=== PATIENT | female | born 1995 | race African-American/Black ===

== ENCOUNTER 2022-06-19 08:14 | Emergency (ER) | payer OTHER ==
[2022-06-19] MEDS ORDERED: Ondansetron ODT 4 MG TAB ONE (09:13)
[2022-06-19] MEDS ORDERED: Famotidine/PF 20 mg/2ml Vial ONE (09:34)
[2022-06-19] MEDS ORDERED: Pantoprazole 40 MG VIAL ONE (09:34)
[2022-06-19 10:06] LABS: Bilirubin Neg (Negative); Blood, Urine 150 (Negative); Clarity Clear (Clear); Glucose, Urine (Dipstick) Normal (Negative); Ketone, Urine Negative (Negative); Leukocyte 25 (Negative); Nitrite Negative (Negative); Protein, Urine (Dipstick) Negative (Neg-Trace); Urobilinogen Normal mg/dL (Less than 2)
[2022-06-19 10:09] LABS: Pregnancy Test - Urine (BHCG) Negative (Negative); Pregu Control Background? CLEAR/WHITE (CLR/WHITE); Pregu Control Bar Appear? YES (CONTROL BAR)
[2022-06-19 10:19] LABS: #Monocytes 0.2 10x3/uL (0.0-1.1); #Neutrophils 4.7 10x3/uL (1.5-8.4); %Basophils 0.6 % (0.0-2.0); %Eosinophils 0.2 % (0.0-6.0); %Lymphocytes 24.5 % (18.0-47.0); %Monocytes 3.3 % (0.0-10.0); %Neutrophils 71.1 % (40.0-75.0); Hemoglobin 12.6 g/dL (12.0-15.5); Mean Corpuscular HGB CONC 34.9 g/dL (32.0-36.0); Mean Corpuscular Hemoglobin 32.1 pg (27.0-33.0); Mean Corpuscular Volume 91.9 fl (81.6-98.3); Mean Platelet Volume 10.1 fl (7.4-10.4); Platelet Count 478 10x3/uL (150-450); RBC Distribution Width 13.1 % (11.5-14.5); Red Blood Cell (RBC) Count 3.93 10x6/uL (3.90-5.03); White Blood Cell (WBC) Count 6.6 10x3/uL (3.5-10.5)
[2022-06-19 10:29] LABS: BHCG - Serum Negative (NEGATIVE); Pregs Control Background? CLEAR/WHITE (CLR/WHITE); Pregs Control Bar Appear? YES (CONTROL BAR)
[2022-06-19 10:34] LABS: ALT (SGPT) 24 U/L (8-55); AST (SGOT) 26 U/L (5-34); Albumin 4.5 g/dL (3.5-5.0); Alkaline Phosphatase 98 U/L (40-110); Anion Gap 18 mmol/L (10-20); BUN (Urea Nitrogen) 12 mg/dL (7.0-18.7); Bilirubin, Total 0.3 mg/dL (0.2-1.2); Calc. Creatinine Clearance 0 mL/min (70-130); Calcium 9.4 mg/dL (7.8-10.44); Carbon Dioxide 20 mmol/L (22-29); Chloride 108 mmol/L (98-107); Estimated GFR 113; Globulin 3.4 g/dL (2.4-3.5); Glucose 161 mg/dL (70-105); Lipase 13 U/L (8-78); Potassium 3.5 mmol/L (3.5-5.1); Protein, Total 7.9 g/dL (6.0-8.3); Sodium 142 mmol/L (136-145)
[2022-06-19 10:49] LABS: Bacteria/HPF 2+ HPF (None Seen); Mucous/LPF 1+ LPF (<2+); RBC/HPF 0-3 HPF (0-3); Squamous Epithelial 0-3 HPF (0-3)
== END 2022-06-19 11:05 | disposition home or self-care (01) ==
LOC: CSHERS 08:14
DX: K29.70 Gastritis, unspecified, without bleeding (principal); F17.290 Nicotine dependence, other tobacco product, uncomplicated
CPT/HCPCS: 36415; 80053; 81003; 81015; 81025; 83690; 84703; 85025; 96374; 96375; C9113; Q0162; S0028

== ENCOUNTER 2023-02-14 20:27 | Emergency (ER) | payer OTHER ==
[2023-02-14 21:20] LABS: #Monocytes 0.5 10x3/uL (0.0-1.1); #Neutrophils 12.5 10x3/uL (1.5-8.4); %Basophils 0.1 % (0.0-2.0); %Eosinophils 0.2 % (0.0-6.0); %Lymphocytes 11.6 % (18.0-47.0); %Monocytes 3.4 % (0.0-10.0); %Neutrophils 84.3 % (40.0-75.0); Hemoglobin 12.3 g/dL (12.0-15.5); Mean Corpuscular Hemoglobin 30.4 pg (27.0-33.0); Mean Corpuscular Volume 89.6 fl (81.6-98.3); Mean Platelet Volume 10.8 fl (7.4-10.4); Platelet Count 406 10x3/uL (150-450); RBC Distribution Width 12.5 % (11.5-14.5); Red Blood Cell (RBC) Count 4.04 10x6/uL (3.90-5.03); White Blood Cell (WBC) Count 14.9 10x3/uL (3.5-10.5)
[2023-02-14 21:31] LABS: ALT (SGPT) 15 U/L (8-55); AST (SGOT) 23 U/L (5-34); Albumin 4.1 g/dL (3.5-5.0); Alkaline Phosphatase 73 U/L (40-110); Anion Gap 18 mmol/L (10-20); BUN (Urea Nitrogen) 5 mg/dL (7.0-18.7); Bilirubin, Total 0.3 mg/dL (0.2-1.2); Calc. Creatinine Clearance 0 mL/min (70-130); Calcium 10.1 mg/dL (7.8-10.44); Carbon Dioxide 16 mmol/L (22-29); Chloride 106 mmol/L (98-107); Estimated GFR 127; Globulin 3.7 g/dL (2.4-3.5); Glucose 101 mg/dL (70-105); Potassium 3.5 mmol/L (3.5-5.1); Protein, Total 7.8 g/dL (6.0-8.3); Sodium 136 mmol/L (136-145)
[2023-02-14] MEDS ORDERED: Metoclopramide HCl 10 MG/2 ML VIAL ONE (21:31)
[2023-02-14 21:42] LABS: Lipase 13 U/L (8-78); Magnesium 1.6 mg/dL (1.6-2.6)
== END 2023-02-14 23:49 | disposition home or self-care (01) ==
LOC: CSHERS 20:27
DX: O21.0 Mild hyperemesis gravidarum (principal); Z3A.16 16 weeks gestation of pregnancy; Z87.891 Personal history of nicotine dependence
CPT/HCPCS: 80053; 83690; 83735; 85025; 96361; 96365; J2765

== ENCOUNTER 2023-07-24 10:08 | Outpatient (CLI) | payer OTHER | END 2023-07-24 10:09 | disposition home or self-care (01) | LOC: CSHLAB 10:08 | PROVIDERS: ATTEND Obstetrics & Gynecology | DX: Z01.812 Encounter for preprocedural laboratory examination (principal); O34.219 Maternal care for unspecified type scar from previous cesarean delivery; Z53.9 Procedure and treatment not carried out, unspecified reason | CPT/HCPCS: 80306; 85014; 85018; 85049; 86780; 86850; 86900; 86901; 87340 ==

== ENCOUNTER 2023-07-25 09:48 | Inpatient (IN) | payer OTHER ==
[2023-07-24 11:36] LABS: Hematocrit 37.7 % (34.9-44.5); Hemoglobin 12.4 g/dL (12.0-15.5); Platelet Count 335 10x3/uL (150-450)
[2023-07-24 11:53] LABS: Amphetamine Not Detected (NotDetected); Barbiturates Screen Not Detected (NotDetected); Benzodiazepine Screen Not Detected (NotDetected); Cocaine Metabolite Screen Not Detected (NotDetected); Methadone Not Detected (NotDetected); Methamphetamine Not Detected (NotDetected); Opiate Screen Not Detected (NotDetected); Oxycodone Screen Not Detected (NotDetected); Phencyclidine (PCP) Not Detected (NotDetected); THC/Cannabinoid Screen Detected (NotDetected); Tricyclic Screen Not Detected (NotDetected)
[2023-07-24 12:22] LABS: HBSAg Index 0.17 S/CO (0-0.99); Hep B Surf Ag Non-Reactive S/CO (NonReactive)
[2023-07-24 12:23] LABS: Syphilis Antibody Nonreactive (Nonreactive); Syphilis Antibody Index 0.04 S/CO (<1.00 Non-Reactive)
[2023-07-25] MEDS ORDERED: hydrALAZINE 20 MG/ML VIAL SLOW IVP PRN ×2 (10:18→12:52)
[2023-07-25] MEDS ORDERED: Misoprostol 200 MCG TAB PR PRN (10:18)
[2023-07-25] MEDS ORDERED: Methylergonovine 0.2 MG/ML VIAL IM PRN (10:18)
[2023-07-25] MEDS ORDERED: Ondansetron PF 4 MG/2 ML Vial IVP PRN ×3 (10:18→11:33)
[2023-07-25] MEDS ORDERED: Famotidine/PF 20 mg/2ml Vial SLOW IVP PRN (10:18)
[2023-07-25] MEDS ORDERED: Diphenoxylate HCl/Atropine Tablet PO PRN ×2 (10:18)
[2023-07-25] MEDS ORDERED: Promethazine HCl 25 MG/ML VIAL IM PRN ×2 (10:18→11:33)
[2023-07-25] MEDS ORDERED: CEFAZOLIN 2 GM in Sodium Chloride 0.9% 100 ML IVPB SCH (10:18)
[2023-07-25] MEDS ORDERED: Tranexamic Acid 1,000 MG/10 ML VIAL IVP PRN (10:18)
[2023-07-25] MEDS ORDERED: Bicitra 30 ML UDCUP PO PRN (10:18)
[2023-07-25] MEDS ORDERED: Oxytocin 30 units/NS 500 ML 500 ML IV SCH (10:18)
[2023-07-25] MEDS ORDERED: Carboprost 250 MCG/ML AMP IM PRN (10:18)
[2023-07-25] MEDS ORDERED: Lactated Ringer's 1,000 ML IV SCH (10:18)
[2023-07-25 11:08] VITALS: BMI 43.2
[2023-07-25] MEDS ORDERED: fentaNYL 50 mcg/mL 1 mL Vial SLOW IVP PRN (11:33)
[2023-07-25] MEDS ORDERED: Moisturizing Cream (Eucerin) 113 GM JAR TOP PRN (11:33)
[2023-07-25] MEDS ORDERED: Meperidine HCl/PF 25 MG/ML VIAL SLOW IVP PRN (11:33)
[2023-07-25] MEDS ORDERED: Naloxone HCl 0.4 mg/ml Vial IV PRN (11:33)
[2023-07-25] MEDS ORDERED: Naloxone HCl 0.4 mg/ml Vial IVP PRN ×2 (11:33)
[2023-07-25] MEDS ORDERED: diphenhydrAMINE 50 MG/ML VIAL IVP PRN (11:33)
[2023-07-25] MEDS ORDERED: Promethazine HCl 25 MG SUPP PR PRN (11:33)
[2023-07-25] MEDS ORDERED: Communication Order-Pharmacy FS SCH (11:45)
[2023-07-25] MEDS ORDERED: fentaNYL 50 mcg/mL 1 mL Vial ONE (12:00)
[2023-07-25] MEDS ORDERED: Phenylephrine 40 MG/NS 250 ML 250 ML ONE (12:00)
[2023-07-25] MEDS ORDERED: Morphine PF 10 MG/10 ML VIAL ONE (12:00)
[2023-07-25] MEDS ORDERED: Sodium Bicarbonate 2.5 MEQ/5 ML VIAL ONE (12:01)
[2023-07-25] MEDS ORDERED: PHENYLEPHRINE-NS 100 MCG/ML 10 ML SYRINGE ONE (12:11)
[2023-07-25] MEDS ORDERED: Ondansetron PF 4 MG/2 ML Vial ONE (12:19)
[2023-07-25] MEDS ORDERED: Dexamethasone 4 mg/ml Vial ONE (12:19)
[2023-07-25] MEDS ORDERED: Oxytocin 10 UNITS/ML VIAL ONE (12:19)
[2023-07-25] MEDS ORDERED: Ketorolac Tromethamine 30 MG/ML VIAL ONE (12:27)
[2023-07-25] MEDS ORDERED: Boostrix 0.5 ML (Tdap) VIAL (>/=7 yrs of age) IM ONE (12:52)
[2023-07-25] MEDS ORDERED: diphenhydrAMINE 25 MG CAP PO PRN (12:52)
[2023-07-25] MEDS ORDERED: Lanolin Ointment 7 GM TUBE TOP PRN (12:52)
[2023-07-25] MEDS ORDERED: Bisacodyl 10 MG SUPP PR PRN (12:52)
[2023-07-25] MEDS ORDERED: Ketorolac Tromethamine 30 MG/ML VIAL IVP SCH (19:00)
[2023-07-25] MEDS: Ferrous Sulfate 325 MG TAB PO SCH (21:15)
[2023-07-25] MEDS ORDERED: HYDROcodone/Acetaminophen 5/325 mg Tablet PO PRN (23:45)
[2023-07-26 03:48] LABS: Hematocrit 34.7 % (34.9-44.5); Hemoglobin 11.4 g/dL (12.0-15.5); Mean Corpuscular HGB CONC 32.9 g/dL (32.0-36.0); Mean Corpuscular Hemoglobin 29.5 pg (27.0-33.0); Mean Corpuscular Volume 89.9 fl (81.6-98.3); Platelet Count 352 10x3/uL (150-450); RBC Distribution Width 13.1 % (11.5-14.5); Red Blood Cell (RBC) Count 3.86 10x6/uL (3.90-5.03); White Blood Cell (WBC) Count 12.2 10x3/uL (3.5-10.5)
[2023-07-26] MEDS: Docusate 100 MG CAP PO SCH ×3 (07:10→21:53)
[2023-07-26] MEDS: Ferrous Sulfate 325 MG TAB PO SCH (07:11)
[2023-07-26] MEDS: Acetaminophen 325 MG TAB PO PRN ×2 (08:47→17:59)
[2023-07-26] MEDS: Prenatal Vitamin 1 TAB PO SCH (09:39)
[2023-07-26] MEDS: Simethicone Chewable 80 MG TAB PO PRN ×4 (09:39→22:42)
[2023-07-26] MEDS: Ibuprofen 800 MG TAB PO SCH ×2 (13:08→21:52)
[2023-07-26] MEDS: HYDROcodone/Acetaminophen 5/325 mg Tablet PO PRN ×2 (20:04→23:41)
[2023-07-27] MEDS: Prenatal Vitamin 1 TAB PO SCH (07:52)
[2023-07-27] MEDS: Ibuprofen 800 MG TAB PO SCH ×2 (07:52→14:05)
[2023-07-27] MEDS: Docusate 100 MG CAP PO SCH (07:53)
[2023-07-27] MEDS: Ferrous Sulfate 325 MG TAB PO SCH (07:54)
[2023-07-27 08:14] VITALS: BP 133/94; TEMP 98.1
[2023-07-27] MEDS: HYDROcodone/Acetaminophen 5/325 mg Tablet PO PRN ×2 (10:21→14:28)
== END 2023-07-27 18:45 | disposition home or self-care (01) | DRG 788 ==
LOC: CSHLD 09:48 → CSHPP 15:10
PROVIDERS: ADMIT Obstetrics & Gynecology; ATTEND Obstetrics & Gynecology
PROC: 10D00Z1 Extraction of Products of Conception, Low, Open Approach (ICD-10-PCS; principal; 2023-07-25)
DX: O34.211 Maternal care for low transverse scar from previous cesarean delivery (principal); Z3A.39 39 weeks gestation of pregnancy; Z37.0 Single live birth; O69.89X0 Labor and delivery complicated by other cord complications, not applicable or unspecified
CPT/HCPCS: 36415; 51702; 80306; 85014; 85018; 85027; 85049; 86780; 86850; 86900; 86901; 87340; J1100; J1885; J2274; J2405; J2590; J3010; J3490; S0028